=== PATIENT | female | born 2000 | race Hispanic/Latino ===

== ENCOUNTER 2021-11-21 14:44 | Emergency (ER) | payer SELFPAY ==
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
[2021-11-21] MEDS ORDERED: KETOROLAC 30 MG/ML INJ ONE (15:09)
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
[2021-11-21 16:55] VITALS: TEMP 98.3
[2021-11-21 17:04] VITALS: BP 97/68; O2SAT 99
== END 2021-11-21 15:51 | disposition home or self-care (01) ==
LOC: ER 14:44
DX: S29.012A Strain of muscle and tendon of back wall of thorax, initial encounter (principal)